=== PATIENT | male | born 1940 | race Caucasian/White ===

== ENCOUNTER → 2017-09-20 | Outpatient (CLI) | payer MEDICARE, BC ==
[~2017-09-20] MED LIST: ACCUPRIL40 MG PO; ACETAMINOPHEN-1 EAC1 PO; ALBUTEROL PO; ALLOPURINOL 30300 M2 PO; ALLOPURINOL 30300 M3 PO; ALPRAZOLAM 0.50.5 MG PO; AMARYL2 MG PO; AMOXICILLIN400 MG PO; ASPIR 8181 MG PO; B-121000 MC2 PO; CARVEDILOL6.25 MG PO; CELEXA20 MG PO; COLACE100 MG PO; DOLOPHINE HCL5 MG PO; FLOMAX0.4 MG PO; FOLIC ACID 40400 MCG PO; FOLIC ACID1 MG PO; GLUCOPHAGE1000 MG PO; HCTZ; HYDROCODON-ACE1 EAC5 PO; IBUPROFEN 600600 M1 PO; LEVOTHYROXINE0.05 MG PO; LIDODERM 5%1 PATC1 TOP; METHADONE HCL5 MG PO; MIRALAX255 GM PO; MOBIC15 MG PO; MORPHINE SULFAT15 M4 PO; NEURONTIN 300300 M1 PO; NEURONTIN600 MG PO; NORCO 10-325 T1 EACH PO; NORCO 5-325 TA1 EACH PO; NORVASC 2.5 MG2.5 M1 PO; PERCOCET PO; PRINIVIL20 M1 PO; PROTONIX40 M1 PO; ROXICODONE5 MG PO; TAMSULOSIN HCL0.4 MG PO; TRAMADOL 50 MG50 MG PO; TRIAMTERENE-HC1 EAC1 PO; VITAMIN B-12500 MCG PO; XANAX1 MG PO; XARELTO10 MG PO; ZOCOR 20 MG TAB20 M1 PO
--- NOTE | 2017-09-22 09:59 | PROC ---
[facility] [address] [place] [address] PROCEDURE REPORT Name: SANAZ WALTER Room: [facility]#: [id number] Admission: 09/20/17 Attend Phys: Jad Zimmerman Discharge: Date of : 41 Report #: [id number] THIS REPORT FOR: //name// CC: Gil Lyle DATE OF SERVICE: 09/20/2017 PAIN CLINIC PROCEDURE INDICATION: The patient is a very pleasant 77-year-old gentleman being treated for lumbar radiculopathy, status post decompressive laminectomy. He is an opiate consent to treat contract patient. His oxycodone 5 mg p.r.n. was prescribed and OxyContin 10 mg at bedtime. Last buccal swab, 08/09/2017, was positive for prescribed medications. He presents to Pain Clinic today for a prior authorized spinal cord stimulator trial. He is taking the OxyContin only p.r.n. bedtime and oxycodone 5 mg 0-2 a day. I did renew his oxycodone prescription today, 5 mg 1 tablet up to b.i.d., limit 45 tablets for 30 days. PROCEDURE NOTE: Spinal cord stimulator lead trial. DESCRIPTION OF PROCEDURE: After informed consent was obtained including risk of infection, paralysis, increased pain and epidural hematoma, patient wished to proceed. IV access was established. The patient was given 1 gram of Ancef. He was taken to fluoroscopy suite and placed in prone position. After wide surgical prep and drape, a skin wheal with Xylocaine was raised. A stab incision with #11 blade was made. A 14 gauge epidural Tuohy needle was placed to enter the posterior spinous process at T12-L1. Stylet was removed and glass filled saline syringe was connected. With continuous plunger pressure, the needle was easily advanced in the epidural space with good loss to resistance. AP and lateral projections showed good needle placement. A spinal cord stimulator lead was then deployed, lead was easily advanced in the posterior aspect of the canal. However, at the T9-T10 interspace, I was unable to advance the lead further cephalad. Lead was withdrawn and attempt was made in the left of midline as well as right of midline, all meeting the same resistance. We elected to place the lead at in the midline, again superior aspect was at the T9-T10 border. The lead was then trialed intraoperatively. We did get good coverage of the low back, buttocks and legs. This was his primary pain generator. We elected to proceed with a trial with the single lead. Under continuous fluoroscopy, the needle and stylet was removed. The tip remained intact. Lead was secured using mastic and Steri-Strips. Wide bolster dressing was applied. The patient was allowed to ambulate to the exam room. He spent some time with the [employer] device rep. They discussed stimulatory patterns. He has contact information for the pain physician technical support consultant ([phone]). [place] [address] PROCEDURE REPORT Name: SANAZ WALTER Room: [facility]#: [id number] Admission: 09/20/17 Attend Phys: Jad Zimmerman Discharge: Date of : 41 Report #: [id number] area clean and dry. I told him to contact Pain Clinic physician technical support consultant if he has any issues with increasing pain, bleeding, weakness, fever, chills, etc. To contact the [employer] [facility] regarding questions about stimulation patterns. We will plan on seeing the patient in 7 days for lead removal and evaluation. Discharged in good and stable condition. Fluoroscopy time was under 60 seconds. <ELECTRONICALLY SIGNED> By: Emanuel Lyle DO 09/22/17 0959 1430 0020Emanuel Lyle DO /nt
== END | disposition home or self-care (01) ==
LOC: M.PC 02:37
DX: M54.16 Radiculopathy, lumbar region (principal); G89.29 Other chronic pain; Z79.891 Long term (current) use of opiate analgesic; Z98.890 Other specified postprocedural states

== ENCOUNTER → 2017-09-27 | Outpatient (CLI) | payer MEDICARE, BC ==
--- NOTE | 2017-09-29 09:33 | PAINCON ---
[address] [address] PAIN MANAGEMENT CONSULTATION Name: SANAZ WALTER [facility] [id number] Admission: 09/27/17 Attend Phys: Jad Zimmerman Discharge: Date of : 41 Report #: [id number] THIS REPORT FOR: //name// CC: Gil Lyle PAIN CLINIC NOTE The patient is a 77-year-old gentleman initially seen in the pain clinic in September 2015, has been treated for ongoing lumbar radiculopathy. He is status post lumbar decompressive laminectomy, has failed conservative therapy. We ultimately progress spinal cord stimulator trial on 09/20/2017, (unfortunately, I was unable to advance the lead above the T9-T10 interspace. We elected to continue the trial with a single lead at this level. I had been in contact with the [employer] device reps over the weekend. The patient was unable to get good coverage in his low back his primary pain area; however, he did have coverage in the left hip and leg. He was actually a little more functionally improved overall. He returns to pain clinic today and notes his pain is an 8 on a VAS. He had increases activity doing more activity over the past weekend, specifically a week and then he has some time feeling a little overall worn out and painful today. Again, he notes primary pain in the low back area, left leg has had pain since the prior injury with some tearing in the proximal muscle groups around the hip. He does have weakness in the left leg, which is chronic. Today, we discussed at length therapeutic options. He is "miserable" using low dose opiate, OxyContin 10 mg 1 in the morning, oxycodone 5 mg up to b.i.d. for breakthrough pain. Gabapentin 300 mg t.i.d. All affording only nominal efficacy. He is very desirous of moving forward to see Dr. Duong in consideration of paddle lead implant. Surgical approach entering above the area of cord compression at T9-T10 that I was unable to get past. May benefit from decompression at this level concurrent with the placement of the paddle lead (?). Nonetheless, the spinal cord stimulator lead was removed today, tips intact, insertion site looks good, no signs of bleeding or infection. Band-Aid was applied. The patient was given contact information for Dr. Rachid Duong. We will be happy to see him as needed for medication management. Discharge in good and stable condition today. <ELECTRONICALLY SIGNED> By: Emaunel Lyle DO 09/29/17 0933 [id number] [id number] Lyle DO /anoop
== END ==
LOC: M.PC 01:29
DX: M54.16 Radiculopathy, lumbar region (principal); Z98.890 Other specified postprocedural states

== ENCOUNTER → 2018-03-07 | Outpatient (CLI) | payer MEDICARE, BC ==
--- NOTE | 2018-03-08 07:27 | PAINCON ---
[facility] [address] [place] [address] PAIN MANAGEMENT CONSULTATION Name: SANAZ WALTER Room: [facility]#: [id number] Admission: 03/07/18 Attend Phys: Jad Zimmerman Discharge: Date of : 41 Report #: [id number] THIS REPORT FOR: //name// CC: Gil Lyle The patient is a 77-year-old gentleman not seen since September. We did a doggyloot spinal cord stimulator trial for the patient of Dr. Rachid Duong. He did have a subsequent implantation of the spinal cord stimulator and decompression at multiple levels in the thoracolumbar spine. He returns to the pain clinic today unfortunately noting the pain continues to be problematic. He does not feel that the stimulator helped significantly. They have had about three different changes so far. He uses a walker consistently. He does have about a 6 inch well-healed incision from about T10 to L4 and a spinal cord stimulator generator in the right pocket. He stands with a significantly forward posture bent from the waist. Upright position significantly exacerbates axial back pain. He is taking physical therapy for his hips. This seems to be helping with his gait and left leg strength. Notes his pain is primarily in the low back with some pain to the buttock and left leg. The patient had been taking oxycodone 5 mg 1 to 3 a day with good efficacy. He has been out for about a month and notes pain is pretty consistently at 8-10 on a VAS. PHYSICAL EXAMINATION: Shows pleasant 77-year-old gentleman, BMI is modestly elevated at 34.5 kilograms per meter squared. Blood pressure 134/97, pulse 89 and respiration 16. As noted rises from chair using armrest, significantly forward bent posture, diffuse axial tenderness. Lower extremity strength is generally diminished, but preserved. Spinal cord stimulator in place. Well-healed surgical scar compatible with history. ASSESSMENT: Axial back pain requiring complex medication management, doggyloot spinal cord stimulator in place with only partial efficacy. Chronic axial back pain, lumbar spondylosis without myelopathy, status post lumbar decompressive laminectomy, extensive decompression, status post spinal cord stimulator implant requiring complex medication management. RECOMMENDATIONS: I had a long discussion with the patient today about therapeutic options. The patient understands that opiate analgesics can be used simply to help mitigate pain to some degree while not trying to achieve a "zero" on a visual analog scale. We will continue the oxycodone 5 mg 0-3 a day to help maintain adequate function. I have taken the liberty of writing for single prescription with 90 tablets. We will have the patient follow up with Dr. Moyer for ongoing management. I told him to make an appointment [place] [address] PAIN MANAGEMENT CONSULTATION Name: SANAZ WALTER Room: [facility]#: [id number] Admission: 03/07/18 Attend Phys: Jad Zimmerman Discharge: Date of : 41 Report #: [id number] the prescription. I suspect that this prescription should last 2-3 months. <ELECTRONICALLY SIGNED> By: Emanuel Lyle DO 03/08/18 0727 1353 [id number] Centerlexii Lyle DO /nt
== END ==
LOC: M.PC 05:01
DX: M47.816 Spondylosis without myelopathy or radiculopathy, lumbar region (principal); M54.5 Low back pain; Z79.899 Other long term (current) drug therapy

== ENCOUNTER → 2018-05-15 | Outpatient (CLI) | payer MEDICARE, BC ==
--- NOTE | 2018-06-25 10:04 | PAINCON ---
[address] [address] PAIN MANAGEMENT CONSULTATION Name: SANAZ WALTER [facility] [id number] Admission: 05/15/18 Attend Phys: Sasha Moyer MD Discharge: Date of : 41 Report #: [id number] THIS REPORT FOR: //name// CC: Sasha Lee DO DATE OF SERVICE: 05/15/2018 CHIEF COMPLAINT: Back pain. FOLLOWUP HISTORY: The patient is a 77-year-old gentleman who has been followed by Dr. Emanuel Lyle. The patient has had a [employer] spinal cord stimulator placed. This was through Dr. Rachid Duong. He did have implantation of the spinal cord stimulator and has had decompression of multiple levels of the lumbar spine in spite of the spinal cord stimulator placement. The patient still continues to have some significant pain. He did not feel that the spinal cord stimulator was significantly helpful. He has been using a walker. Did have an incision from T10 through L4. Notes that upright standing exacerbates his pain and discomfort. He has had physical therapy. He has had some problems over the last few weeks. He had a significant amount of fluid buildup in his abdominal area. The patient states that he has ascites. States that they took about 7-1/2 liters of fluid from his abdomen. Fluid is accumulating relatively rapidly. He has fluid removal about every 2 weeks. He feels that the oxycodone and gabapentin medications have been helpful. He did have hepatitis C and did undergo 6 months treatment with "pills to help with this." He does feel extremely short of breath when the fluid builds. ALLERGIES: No known drug allergies. MEDICATIONS: Again, his medications are oxycodone 5 mg p.r.n. and OxyContin 10 mg at bedtime. Other medications gabapentin 300 mg t.i.d. PAST MEDICAL HISTORY: 1. Chronic back pain. 2. Encephalopathy -- medication induced. 3. Sciatica. 4. Hypertension. 5. Hepatitis C. 6. Kidney disease. 7. History of thyroid disease. PAST SURGICAL HISTORY: Knee arthroscopy, knee arthroplasty, right knee degenerative joint disease, shoulder replacement in 2011, knee replacement in 2012, back [place] [address] [address] PAIN MANAGEMENT CONSULTATION Name: SANAZ WALTER Room: [facility]#: [id number] Admission: 05/15/18 Attend Phys: Sasha Moyer MD Discharge: Date of : 41 Report #: [id number] SOCIAL HISTORY: He is retired. Stopped working in 2007. REVIEW OF SYSTEMS: Fatigue, weakness, eye disease, hearing loss, shortness of breath while lying flat, insomnia, depression, memory loss, diabetes, numbness and tingling sensation, lightheadedness, dizziness, varicose veins. LABORATORY DATA: No laboratory values are available at the time of our interview. PAIN CLINIC ASSESSMENT: 1. History of osteoarthritis/history of arthritis. The patient has some arthritic changes and had shoulder surgeries, left and right, low back surgery, frozen shoulder. 2. Height 5 feet 11 inches, weight 238 pounds. Vital signs: Blood pressure 123/67, heart rate 81, respiratory rate 16, room air saturation 94%, temperature 98.2, pain score 8/10. 3. Fall risk. The patient has not fallen in the last 3 months. Does walk using a walker. 4. Blood thinner. The patient is not on a blood thinning medication. 5. Hypertension. The patient is not being treated for hypertension. 6. Opiates greater than 6 weeks. The patient is receiving opioid therapies through the pain clinic. 7. Risk assessment tool. 8. Functional assessment tool. 9. Recreational drug use. 10. Tobacco: The patient uses tobacco at this juncture. 11. Alcohol. The patient denies frequent use of alcoholic beverages. PHYSICAL EXAMINATION: GENERAL: The patient is a well-developed white male. Does appear somewhat tired. States that he is somewhat short of breath, but is breathing much better now that he has had 7 liters of fluid taken off at the Hospital. HEENT: Normocephalic, atraumatic. Extraocular eye muscles intact. Sclerae nonicteric. Mucous membranes are moist. NECK: Without adenopathy. HEART: Regular rate. LUNGS: Sounds difficult to assess secondary to the patient's body habitus and history of ascites. NEUROLOGIC: Upper extremity muscle strength judged to be 4/5 in the major muscle groups and 4+/5 for the lower extremities. The patient complains of pain in the lower extremities. Well-healed scar compatible with history of spinal cord stimulator in place. ASSESSMENT: 1. Axial back pain requiring complex medical management. 2. History of [employer] spinal cord placement [place] [address] PAIN MANAGEMENT CONSULTATION Name: SANAZ WALTER Room: [facility] [place]#: [id number] Admission: 05/15/18 Attend Phys: Sasha Moyer MD Discharge: Date of : 41 Report #: [id number] 3. Chronic axial back pain. 4. Lumbar spondylosis without myelopathy. 5. Status post lumbar decompressive laminectomy -- extensive decompression. RECOMMENDATIONS: We discussed treatment options with the patient. At this juncture, we will continue with his use of opioid medications. He finds that the oxycodone medication is beneficial. He is taking it 2-3 times daily. Also, the patient will continue with his gabapentin. The patient is aware that the opioid medications will be helpful to help mitigate his pain, but not totally alleviate it. Given his poor respiratory function, I think 0-3 tablets daily is reasonable. A prescription of 90 tablets have been provided for the patient. He will follow up in the near future. He will call us if he has any concerns. We would like to thank you for letting us participate in his care. We hope he continues to improve. <ELECTRONICALLY SIGNED> By: Sasha Moyer MD 06/25/18 1004 [id number]. Wally Moyer MD /nt
== END ==
LOC: M.PC 03:48
DX: M47.816 Spondylosis without myelopathy or radiculopathy, lumbar region (principal); M96.1 Postlaminectomy syndrome, not elsewhere classified; G89.29 Other chronic pain; Z79.899 Other long term (current) drug therapy; M19.90 Unspecified osteoarthritis, unspecified site

== ENCOUNTER → 2018-07-24 | Outpatient (CLI) | payer MEDICARE, BC ==
--- NOTE | 2018-07-25 15:35 | PAINCON ---
[address] [address] PAIN MANAGEMENT CONSULTATION Name: SANAZ WALTER [facility] [id number] Admission: 07/24/18 Attend Phys: Sasha Moyer MD Discharge: Date of : 41 Report #: [id number] THIS REPORT FOR: //name// CC: Sasha Lee DATE OF SERVICE: 07/24/2018 FOLLOWUP COMPLAINT: Here for medication renewal. FOLLOWIUP HISTORY: The patient is a 78-year-old gentleman who has been followed in the pain clinic. He does have a [employer] spinal cord in place. Finds that this medication has helped with his pain. He still has pain and discomfort in his low back and down into his legs. States that he has been found to have ascites. He has been going to [facility]. States that 7 liters of ascitic fluid was pulled off at the last visit. Rates his pain as an 8-9 in the morning and at [facility]'s where he had the fluid taken off. Does have some pain and discomfort involving his left knee. Has some pain in the left groin area. Has noted swelling and inflammation in his left and right leg. If he takes his shoes off, he is unable to get them back on secondary to the amount of swelling that he has been experiencing. The patient does have hepatitis C. States that he has had some cirrhosis of his liver, which is causing a significant amount of his problem. Feels his medications are helpful and would like to continue with their use. He feels that the ascites continues to have return. He feels that he may need to have the ascites removed every 8 days instead of every 14 days. ALLERGIES: No known drug allergies. MEDICATIONS: Oxycodone 5 mg 1 p.o. every 4-6 hours p.r.n., gabapentin 300 mg t.i.d. IMPRESSION: 1. Chronic back pain. 2. Encephalopathy -- medication induced. 3. Sciatica. 4. Hypertension. 5. Hepatitis C history. 6. Kidney disease. 7. History of thyroid disease. PAIN CLINIC ASSESSMENT/PQRS: 1. History of osteoarthritis involving his left knee. The patient has also had some changes and discomfort in his shoulder left and right, has had low back surgery, has a frozen shoulder. 2. Height 5 feet 11 inches, weight 238 pounds, BMI is 33. 3. Vital signs, blood pressure 135/73, heart rate 71, respiratory rate 16, [place] [address] PAIN MANAGEMENT CONSULTATION Name: SANAZ WALTER Room: [facility]#: [id number] Admission: 07/24/18 Attend Phys: Sasha Moyer MD Discharge: Date of : 41 Report #: [id number] air saturation 95%, temperature 98.4. 4. Pain intensity 10. 5. Fall history: The patient has not fallen in the last 3 months. He does walk with use of a walker. 6. Blood thinner. The patient is not on a blood thinning medication. 7. Hypertension. The patient has not been treated for hypertension. 8. Opioid greater than 6 weeks. The [facility]. 9. Risk assessment tool. 10. Functional assessment tool. 11. Recreational drug use. The patient denies use of recreational drugs. 12. Tobacco: The patient uses tobacco at this juncture. 13. Alcohol. The patient denies frequent use of alcoholic beverages. PHYSICAL EXAMINATION: GENERAL: The patient is well-developed, well-nourished white male. Does appear his stated age. Seems somewhat better respiratory status, we saw him last time. HEAD, EYES, EARS, NOSE, AND THROAT: Normocephalic, atraumatic. Extraocular eye muscles intact. Sclerae nonicteric. Mucous membranes are moist. NECK: Without adenopathy or JVD. HEART: Regular rate. LUNGS: Difficult to assess secondary to the patient's body habitus and history of ascites. No neurologic upper extremity muscle strength is judged to be 4/5 for the major muscle groups in the upper extremity and 4+/5 for the lower extremities. Complains of some discomfort in the left groin area. Has well-healed scar and history of spinal cord stimulator placement. The patient has +3 edema in the lower extremities. The patient would not be able to get his shoes back on if he would take them off at this juncture. ASSESSMENT: 1. Axial back pain requiring complex medical management. 2. History of spinal cord placement with partial efficacy. 3. Chronic axial back pain. 4. Liver failure with ascites. 5. History of lumbar decompressive laminectomy. 6. Lower extremity edema. RECOMMENDATIONS: We discussed treatment options with the patient. At this juncture, we will continue with his medications of oxycodone and gabapentin. These medications will be refilled. Hopefully, he continues to improve. The patient continues to walk with use of his walker for stability. He will call us if he has any problems or concerns. [address] [address] PAIN MANAGEMENT CONSULTATION Name: SANAZ WALTER Room: [facility]#: [id number] Admission: 07/24/18 Attend Phys: Sasha Moyer MD Discharge: Date of : 41 Report #: [id number] We would like to thank you for letting us to participate in his care. We hope he continues to improve. <ELECTRONICALLY SIGNED> By: Sasha Moyer MD 07/25/18 1535 1222 [id number] Moyer MD /[facility]
== END ==
LOC: M.PC 04:37
DX: M54.40 Lumbago with sciatica, unspecified side (principal); K70.31 Alcoholic cirrhosis of liver with ascites; G93.40 Encephalopathy, unspecified; R60.0 Localized edema; M96.1 Postlaminectomy syndrome, not elsewhere classified; I10 Essential (primary) hypertension; G89.29 Other chronic pain; N28.9 Disorder of kidney and ureter, unspecified; Z86.39 Personal history of other endocrine, nutritional and metabolic disease; Z79.899 Other long term (current) drug therapy; Z86.19 Personal history of other infectious and parasitic diseases

== ENCOUNTER → 2018-08-21 | Outpatient (CLI) | payer MEDICARE, BC ==
--- NOTE | ~2018-08-21 | PAINCON ---
[address] [address] PAIN MANAGEMENT CONSULTATION Name: SANAZ WALTER Room: [facility].#: [id number] Admission: 08/21/18 Attend Phys: Sasha Moyer MD Discharge: Date of : 42 Report #: [id number] THIS REPORT FOR: //name// CC: Sasha Lee DATE OF SERVICE: 08/21/2018 FOLLOWUP COMPLAINT: "Here for medication renewal. They took off about 8 or 9 liters." FOLLOWUP HISTORY: The patient is a 78-year-old gentleman who has been followed in the pain clinic. As you may recall, he has cirrhosis. Has chronic pain. He has had a [employer] spinal cord stimulator placed. Finds that use of his medications in conjunction with his stimulator were helpful. He continues to develop significant amounts of ascites. He is followed at [facility]. States that they took over 8 liters of fluid from him at the last visit. Notes improvement in his breathing when that happens. He has noted some swelling, which is significant down his legs. He has also noticed some swelling in the groin area. Does have hepatitis C. He feels that his medications continue to be helpful. Has some low back pain as well as his left leg, there is no numbness below his knee. Rates his pain as a 10/10 at this juncture. ALLERGIES: No known drug allergies. MEDICATIONS: Oxycodone 5 mg q.4 hours p.r.n., gabapentin 300 mg t.i.d. PAIN CLINIC ASSESSMENT AND PQRS: 1. History of osteoarthritis involving his left knee. The patient also has had some changes and discomfort in the shoulder as well as left and right shoulder area. He has had low back surgery. 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 2. Height 5 feet 11 inches, weight 227 pounds, BMI is 36.8. 3. Vital signs: Blood pressure 126/67, heart rate 75, respiratory rate 18, room air saturation 98%, temperature 97.8. 4. Pain intensity /10. 5. Fall history: The patient has not fallen in the last 3 months. 6. Blood thinner. The patient is not on a blood thinning medication. 7. Hypertension. The patient has not been treated for hypertension. 8. Opioids greater than 6 weeks. The patient receives his medications [facility], the pain clinic. 9. Risk assessment tool, low for opioid use. 10. Functional assessment tool. 11. Recreational drug use. The patient denies use of recreational drugs. 12. Tobacco: The patient denies use of tobacco at this juncture. 13. Alcohol. The patient denies frequent [place] [address] PAIN MANAGEMENT CONSULTATION Name: SANAZ WALTER Kieran Room: [facility]#: [id number] Admission: 08/21/18 Attend Phys: Sasha Moyer MD Discharge: Date of : 41 Report #: [id number] PHYSICAL EXAMINATION: GENERAL: The patient is a well-developed, well-nourished white male. Appears his stated age. He is alert and oriented. Respiratory status is baseline. HEENT: Normocephalic, atraumatic. Extraocular eye muscles intact. Sclerae nonicteric. Mucous membranes are moist. NECK: Without adenopathy or JVD. HEART: Regular rate. LUNGS: Difficult to assess secondary to the patient's body habitus and history of ascites. EXTREMITIES: Upper extremity muscle straight judged to be 4/5 for the major muscle groups in the upper extremity, 4+/5 for the lower extremity. The patient continues to have some pain and discomfort down his lower back and groin area. States that he has noted some increase of swelling in his testicular area. Well-healed scar and a history of spinal cord stimulator placement. The patient has +4 edema in the lower extremities. Edema up to the level of his knee on the left and right side. ASSESSMENT: 1. Axial back pain requiring complex medical management. 2. History of spinal cord stimulator placement with partial efficacy. 3. Chronic axial back pain. 4. Liver failure with ascites, history of hepatitis C. 5. History of lumbar decompressive laminectomy. 6. Lower extremity edema secondary to ascites buildup. RECOMMENDATIONS: We discussed treatment options. We will continue with his current medications. A script for gabapentin 300 mg, Amaryl 2 mg, oxycodone 5 mg 1 p.o. q.4-6h., total of 100 tablets have been written. The patient will call us if he has any concerns. We would like to thank you for letting us participate in his care. We hope he continues to improve. By: [id number]. Wally Moyer MD /[facility]
== END ==
LOC: M.PC 04:40
DX: M54.5 Low back pain (principal); G89.29 Other chronic pain; M96.1 Postlaminectomy syndrome, not elsewhere classified; K70.31 Alcoholic cirrhosis of liver with ascites; R60.0 Localized edema; Z79.899 Other long term (current) drug therapy

== ENCOUNTER → 2018-09-27 | Outpatient (CLI) | payer MEDICARE, BC ==
--- NOTE | ~2018-09-27 | PAINCON ---
[address] [address] PAIN MANAGEMENT CONSULTATION Name: SANAZ WALTER Room: [facility].#: [id number] Admission: 09/27/18 Attend Phys: Sasha Moyer MD Discharge: Date of : 42 Report #: [id number] THIS REPORT FOR: //name// CC: Sasha Lee DATE OF SERVICE: 09/27/2018 CHIEF COMPLAINT: Here for medicines. They only pumped out 6 liters from the last time. FOLLOWUP HISTORY: The patient is a 78-year-old gentleman who has been followed in the pain clinic. 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 He continues to have significant ascites buildup. States that his last treatment, was drained off 6 liters of fluid. He continues to have pain and discomfort. Finds that the spinal cord stimulator is helpful. He continues to have difficulty with breathing, particularly when the ascites are quite high. Overall, things have gone reasonably well. Rates his pain as a 6/10 at this point. He has had a history of bleeding esophageal varices. States that he got 5 transfusions about a year ago. Has not had problems with that at this juncture. Continues to have some significant swelling in the legs. Does have hepatitis C. He has had low back pain. ALLERGIES: No known drug allergies. CURRENT MEDICATIONS: Oxycodone 5 mg 1 p.o. every 4 hours p.r.n., Gabapentin 300 mg t.i.d. PAST MEDICAL HISTORY: History of esophageal bleed secondary to varices, which were banded. The patient lost about 5 liters of blood. PAIN CLINIC ASSESSMENT/PQRS: 1. History of osteoarthritis involving his left knee. The patient also has had some changes and discomfort in the shoulders, left and right. Has had back pain and surgery. 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 Has not been treated for rheumatoid arthritis. 2. Height 5 feet 11 inches, weight 222 pounds, BMI is 31. 3. Vital signs: Blood pressure 131/68, heart rate 83, respiratory rate 16, room air saturation 92%. 4. Pain in intensity, is 6/10. 5. Fall risk. The patient has not fallen in the last 3 months. 6. Blood thinner. The patient is not on a blood thinning medication. 7. Hypertension. The patient is being treated for hypertension. 8. Opioids greater than 6 weeks. The [facility]. 9. Risk assessment tool, [place] [address] PAIN MANAGEMENT CONSULTATION Name: SANAZ WALTER Room: [facility]#: [id number] Admission: 09/27/18 Attend Phys: Sasha Moyer MD Discharge: Date of : 41 Report #: [id number] 10. Functional assessment tool. 11. Recreational drug use. The patient denies use of recreational drugs. 12. Tobacco: The patient denies use of tobacco. 13. Alcohol: The patient denies use of alcoholic beverages. PHYSICAL EXAMINATION: GENERAL: The patient is a well-developed, well-nourished white male. Appears his stated age. He is alert and oriented x3. HEAD, EYES, EARS, NOSE, AND THROAT: Normocephalic, atraumatic. Extraocular eye muscles intact. Sclerae nonicteric. Mucous membranes are moist. Number of teeth are missing. NECK: Without adenopathy or JVD. HEART: Distant regular rate. LUNGS: Difficult to assess secondary to the patient's body habitus. History of ascites notes some protuberance of abdomen. This would be consistent with ascites. EXTREMITIES: Upper extremity muscle strength 4-/5 for the major muscle groups in the upper extremity. 4- for the lower extremity. The patient walks with use of a rolling walker. Changes position from sitting to a standing position with use of his hands on the chair. Walks slowly. As noted in the past some increased testicular swelling secondary to ascites. Well-healed scar. History of spinal cord stimulator placement. 4+ edema in the lower extremity, edema to the level of his knee left and right side. ASSESSMENT: 1. Hepatic cirrhosis with ascites with increased ascites causing respiratory compromise. 2. Axial back pain requiring complex medical management. 3. History of spinal cord stimulator placed and with partial efficacy. 4. Chronic axial back pain. 5. History of hepatitis C. 6. History of lumbar decompressive laminectomy. 7. Lower extremity edema secondary to ascites buildup. RECOMMENDATIONS: Overall, the patient feels that things are going reasonably well. He had a treatment where 6 liters were withdrawn a couple of days ago. He continues to find his medications of oxycodone and Neurontin helpful. A script for these medications have been rewritten. The patient will call us if he has any concerns. We would like to thank you for letting us to participate in his care. By: [id number]. Wally Moyer MD /[facility]
== END ==
LOC: M.PC 09-18 12:30
DX: M17.12 Unilateral primary osteoarthritis, left knee (principal); I10 Essential (primary) hypertension; F11.10 Opioid abuse, uncomplicated; Z79.899 Other long term (current) drug therapy; Z91.81 History of falling

== ENCOUNTER → 2019-01-24 | Outpatient (CLI) | payer MEDICARE, BC ==
[~2019-01-24] MED LIST changes: +IRON325 PO
--- NOTE | 2019-02-07 01:32 | PAINCON ---
[facility] [address] [place] [address] PAIN MANAGEMENT CONSULTATION Name: JOSE ANGELSANAZ L Room: [facility]#: [id number] Admission: 01/24/19 Attend Phys: Sasha Moyer MD Discharge: Date of : 41 Report #: [id number] THIS REPORT FOR: //name// CC: Sasha Lee DO DATE OF SERVICE: 01/24/2019 CHIEF COMPLAINT: Abdominal pain. FOLLOWUP HISTORY: The patient is a 78-year-old gentleman who has been followed in the Pain Clinic. As you recall, he suffers from chronic hepatitis with cirrhosis. As a result, he continues to develop fluid as a result of ascites. When this increase it makes respiration difficult. It makes it is incredibly problematic for the patient to get comfortable. He continues to have this drained off at a scheduled time. He has been considering having a drain placed. He could then be taught by the nurses to drain the fluid, which would give him more and provide him more comfort. He is considering that option. He has returned today for renewal of his medications. ALLERGIES: No known drug allergies. CURRENT MEDICATIONS: Oxycodone 5 mg one p.o. q. 4 hours, gabapentin 300 mg t.i.d., alprazolam 1 mg b.i.d., vitamin B12 1000 mcg, Colace 100 mg b.i.d., Neurontin 300 mg t.i.d., Amaryl 2 mg, Prinivil 20 mg, Protonix 40 mg, Flomax 0.4 mg, triamterene/hydrochlorothiazide 37.5/25. PAIN CLINIC ASSESSMENT/PQRS: 1. History of osteoarthritis involving his left knee. The patient also has some changes in his shoulders, left and right. The patient has some back pain and has had back surgery. The patient has a frozen shoulder. The patient is not being treated for rheumatoid arthritis. 2. Height 5 feet 11 inches, weight 214 pounds, BMI is 31. 3. Vital Signs: Blood pressure 118/62, heart rate 70, respiratory rate 16, room air saturation 96%, temperature 97.9. 4. Pain intensity, 06/20. 5. Fall risk. The patient has not fallen in the last 3 months. 6. Blood thinner. The patient is not on a blood thinning medication. 7. Hypertension. The patient is being treated for hypertension. 8. Opioids greater than 6 weeks. The patient refuses opioid medication. The patient recieved his medication [facility]. 9. Risk assessment tool, low for opioid use. 10. Functional assessment tool. 11. Recreational drug use. The patient denies use of recreational drugs. 12. Tobacco: The [place] [address] PAIN MANAGEMENT CONSULTATION Name: SANAZ WALTER Kieran Room: [facility]#: [id number] Admission: 01/24/19 Attend Phys: Sasha Moyer MD Discharge: Date of : 41 Report #: [id number] 13. Alcohol: The patient denies use of alcoholic beverages. PHYSICAL EXAMINATION: GENERAL: The patient is a well-developed, well-nourished white male. Appears his stated age. He is alert and oriented x 3. His affect is appropriate. Speech is slow. HEENT: Normocephalic, atraumatic. Extraocular eye muscles intact. Sclerae nonicteric. Mucous membranes moist. The patient is missing a number of teeth. NECK: Without adenopathy or JVD. HEART: Regular rate. ABDOMEN: Protuberant. Bowel sounds distant. The patient has somewhat increased fluid around his abdomen secondary to ascites. EXTREMITIES: Upper extremity muscle strength is 4-/5 for the major muscle groups in the upper extremity. Lower extremity, the patient is walking with a walker. He goes from a sitting to a standing position using his hands. History of spinal cord stimulator placement. ASSESSMENT: 1. Hepatitis cirrhosis with ascites causing some respiratory compromise. 2. Axial back pain requiring complex medical management. 3. History of spinal cord stimulator placed with partial efficacy. 4. Chronic axial back pain. 5. History of hepatitis C. 6. History of lumbar decompressive laminectomy. 7. Lower extremity edema secondary to ascites. RECOMMENDATIONS: We discussed treatment options with the patient. At this juncture, the patient feels that he would like to go to physical therapy. We will have the patient go to physical therapy and had been evaluated to help with his weakness. He continues to use a walker and his cane. He feels that his medications are helpful, the hydrocodone. He is taking them as prescribed. He is considering having a shunt placed in the abdomen to drain off the Extra fluid. Overall, he feels his pain is about 50% improved with his current medical regimen arrangement. We will consider having the c programmer feels that the patient at the Pain Clinic on his next visit to optimize use of his spinal cord stimulator. We would like to thank you for letting us participate in his care. We hope he continues to improve. <ELECTRONICALLY SIGNED> By: Sasha Moyer MD 02/07/19 0132 [id number]. Wally Moyer MD /anoop
== END ==
LOC: M.PC 05:01
DX: K74.60 Unspecified cirrhosis of liver (principal); M54.5 Low back pain; R18.8 Other ascites; Z86.19 Personal history of other infectious and parasitic diseases; M96.1 Postlaminectomy syndrome, not elsewhere classified; Z79.899 Other long term (current) drug therapy

== ENCOUNTER → 2019-05-02 | Outpatient (CLI) | payer MEDICARE, BC | LOC: M.PC 02:14 | DX: M54.5 Low back pain (principal) ==

== ENCOUNTER → 2019-05-30 | Outpatient (CLI) | payer MEDICARE, BC ==
--- NOTE | 2019-06-03 09:16 | PAINCON ---
[address] [address] PAIN MANAGEMENT CONSULTATION Name: JOSE ANGELSANAZ L [id number] Admission: 05/30/19 Attend Phys: Sasha Moyer MD Discharge: Date of : 41 Report #: [id number] THIS REPORT FOR: //name// CC: Sasha Lee DATE OF SERVICE: 05/30/2019 CHIEF COMPLAINT: Low back pain and abdominal discomfort. HISTORY: The patient is a 78-year-old gentleman who has been followed in the pain clinic because of chronic pain. He is having pain in his low back. He finds that the current medications are helpful. He feels that the oxycodone taken p.r.n. can be helpful. He finds that taking total of 10 mg is the most effective. Overall, he feels that things are going reasonably well. He still has some medications from the last prescription. He feels much better at this juncture. He is able to use the drainage in the abdomen to decrease the pressure that continues to build as a result of ascites. Overall, he is much happier with his situation. He rates his pain as a 6/10. Had no real changes and the pain is helped with the current use of his medications. ALLERGIES: No known drug allergies. CURRENT MEDICATIONS: Oxycodone 5 mg 1 p.o. q.4-6 hours, the patient can take 2 tablets when needed. Gabapentin 300 mg 1 p.o. t.i.d., alprazolam 1 p.o. b.i.d., vitamin B12 1000 mcg, Colace 100 mg b.i.d., Neurontin 300 mg t.i.d., Amaryl 2 mg, Prinivil 20 mg, Protonix 40 mg, Flomax 0.4 mg, triamterene/hydrochlorothiazide 37.5/25. PAIN CLINIC ASSESSMENT AND PQRS: 1. The patient has a history of osteoarthritis involving his knee. He has had some changes in his shoulders, left and right. The patient also has had some back pain and has had back surgeries. Has a frozen shoulder. He is not being treated for rheumatoid arthritis. 2. Height 5 feet 11 inches, weight 200 pounds, BMI is 27.1. 3. Vital Signs: Blood pressure 108/67, heart rate 67, respiratory rate 16, room air saturation 94%, temperature 97.5. 4. Pain intensity, 6/10. 5. Fall history. The patient has not fallen in the last 3 months. 6. Blood thinner. The patient is not on a blood thinning medication. 7. Hypertension. The patient is being treated for hypertension. 8. Opioids greater than 6 weeks. The patient continues to use opioids as prescribed. 9. Risk assessment tool, low for opioid use. 10. Functional assessment tool. 11. Recreational drug use. The patient denies [place] [address] PAIN MANAGEMENT CONSULTATION Name: JOSE ANGELSANAZ L Room: [facility]#: [id number] Admission: 05/30/19 Attend Phys: Sasha Moyer MD Discharge: Date of : 42 Report #: [id number] 12. Tobacco: The patient denies use of tobacco. 13. Alcohol: The patient denies use of alcoholic beverages. PHYSICAL EXAMINATION: GENERAL: The patient is a well-developed, well-nourished, white male. Appears his stated age. He is alert and oriented x 3. His affect is appropriate. Speech is fluent. He appears more rested and relaxed today. HEENT: Normocephalic, atraumatic. Extraocular eye muscles intact. Sclerae nonicteric. Mucous membranes are moist. The patient is missing a number of teeth. NECK: Without adenopathy or JVD. HEART: Regular rate. ABDOMEN: Nontender, protuberant. The patient has a shunt in place. The patient's girth is less than it has been in the past secondary to ascites. EXTREMITIES: Upper extremity muscle strength judged to be 4-/5 for the major muscle groups in the upper extremity. Lower extremity, the patient walks with a walker. He uses hands to go from a sitting to a standing position. Has a spinal cord stimulator in place. ASSESSMENT: 1. Hepatitis cirrhosis with ascites, which causes respiratory compromise. 2. Shunt placement to relieve the ascites and the patient relieves the fluid at home. 3. Axial back pain, requiring complex medical management. 4. History of spinal cord stimulator placed with partial efficacy. 5. Chronic axial back pain. 6. History of hepatitis C. 7. History of lumbar decompression laminectomy. 8. Lower extremity edema secondary to ascites. RECOMMENDATIONS: We discussed treatment options with the patient. At this juncture, he feels his medications are helpful. He notes that sometimes when his pain is more problematic, if he takes 2 pills for a total of 10 mg, this can be more efficacious. Overall, he feels that things are going reasonably well. We have instructed him that should his pain become more problematic, to call us. We will then increase his dose of hydrocodone to a more efficacious level. Again, he is tolerating the medications well. He is feeling better. Overall, things are going relatively well. We will continue with his medications at their current levels. A script for Roxicodone 5 mg 1 p.o. q.4-6 hours has been written for 100 tablets. He will also continue with gabapentin 1 p.o. t.i.d. <ELECTRONICALLY SIGNED> By: Sasha Moyer MD 06/03/19 0916 [id number]. Wally Moyer MD /[facility]
== END ==
LOC: M.PC 05:05
DX: M54.5 Low back pain (principal); R10.9 Unspecified abdominal pain; G89.29 Other chronic pain; I10 Essential (primary) hypertension; K74.60 Unspecified cirrhosis of liver; R18.8 Other ascites; Z79.899 Other long term (current) drug therapy; Z79.891 Long term (current) use of opiate analgesic

== ENCOUNTER → 2019-06-27 | Outpatient (CLI) | payer MEDICARE, BC ==
[~2019-06-27] MED LIST changes: +SYNTHROID88 MC1 PO
--- NOTE | 2019-07-03 09:09 | PAINCON ---
[address] [address] PAIN MANAGEMENT CONSULTATION Name: JOSE ANGELSANAZ L Room: [facility]#: [id number] Admission: 06/27/19 Attend Phys: Sasha Moyer MD Discharge: Date of : 41 Report #: [id number] THIS REPORT FOR: //name// CC: Sasha Lee DO DATE OF SERVICE: 06/27/2019 CHIEF COMPLAINT: Low back and shoulder as well as abdominal pain. HISTORY: The patient is a very pleasant 79-year-old gentleman who has been followed in the pain clinic. As you recall, he suffers from ascites. He has had a drain placed. He is able to remove the ascites about every 2 days. He has assistance from his niece. Generally, they takeoff about 2 liters of fluid. This has been much more comfortable. He does not have to wait for additional days to let off the fluid. In the past, they have let out as much as 8 liters of fluid. He finds this pain in the morning still problematic. He rates it as an 8-9. Has pain in his shoulders. Left shoulder is most problematic. He did get an injection in the shoulder about 2 months ago. He did not find that has been senior care helpful. Has some limited range of motion. Notes some popping sensation as well. Has pain in his low back, which is problematic all the time. He does have a spinal cord stimulator. He is not sure that as to how much pain relief this is providing. He has returned today and would like to have a renewal of his medication. Notes that with walking, sitting, standing, bending, and lifting, pain continues to be quite problematic. He feels that his medications were helpful, but they continue to wear off. He was wondering if he could have an additional pain pill during the day to help control the pain when it becomes more limiting. He does not feel any signs of over sedation with the medications. ALLERGIES: No known drug allergies. CURRENT MEDICATIONS: 1. Oxycodone 5 mg one p.o. q.4-6 hours. The patient takes 2 tablets in the morning p.r.n. when needed. 2. Gabapentin 30 mg 1 p.o. t.i.d. 3. Alprazolam 1 mg b.i.d. 4. Vitamin B12 1000 mcg. 5. Colace 100 mg b.i.d. 6. Neurontin 300 mg t.i.d. 7. Amaryl 2 mg. 8. Prinivil 20 mg. 9. Protonix 40 mg. 10. Flomax 0.4 mg. 11. Triamterene/hydrochlorothiazide 37.5/25. [place] [address] PAIN MANAGEMENT CONSULTATION Name: JOSE ANGELSANAZ L Room: [facility]#: [id number] Admission: 06/27/19 Attend Phys: Sasha Moyer MD Discharge: Date of : 41 Report #: [id number] PAIN CLINIC ASSESSMENT/PQRS: 1. The patient has a history of osteoarthritis involving his knee. He has had some changes in his shoulder. This involves the left and the right shoulder. He has had pain in his back and has had back surgeries. He has a frozen shoulder. He is not being treated for rheumatoid arthritis. 2. Height 5 feet 9 inches, weight 205 pounds, BMI is 30. 3. Vital signs: Blood pressure of 123/69, heart rate 78, respiratory rate 16, room air saturation 97%, temperature 97.5. 4. Pain intensity 02/18. 5. Fall history: The patient has not fallen in the last 3 months. 6. Blood thinner. The patient is not on a blood thinning medication. 7. Hypertension. The patient is being treated for hypertension. 8. Opioids greater than 6 weeks. The patient continues to use opioids as prescribed. 9. Risk assessment tool, low for opioid use. 10. Functional assessment tool, low. 11. Recreational drug use. The patient denies. 12. Tobacco: The patient denies use of tobacco. 13. Alcohol. The patient denies use of alcoholic beverages. PHYSICAL EXAMINATION: GENERAL: The patient is a well-developed, well-nourished white male. Appears his stated age. He is alert and oriented x 3. His affect is appropriate. Speech is fluent. HEENT: Normocephalic, atraumatic. Extraocular eye muscles intact. Sclerae nonicteric. Mucous membranes are moist. The patient is missing a number of teeth. NECK: Without adenopathy or JVD. HEART: Regular rate. ABDOMEN: Nontender, but protuberant upward. The patient does have a shunt in the abdominal area. Notes some decrease in his girth since he is able to draw off the ascites more regularly. EXTREMITIES: Lower extremity. The patient walks with a walker. Uses hands to go from a sitting to a standing position. Has spinal cord stimulator in place. IMPRESSION: 1. Hepatitis cirrhosis with ascites, which has caused respiratory compromise. 2. Shunt placement to relieve the ascites and the patient has help from his niece. 3. Axial back pain requiring complex medical management. 4. History of spinal cord stimulation with the partial efficacy at this juncture. 5. Chronic axial back pain. 6. History of hepatitis C. 7. History of lumbar [place] [address] PAIN MANAGEMENT CONSULTATION Name: SANAZ WALTER Room: [facility]#: [id number] Admission: 06/27/19 Attend Phys: Sasha Moyer MD Discharge: Date of : 41 Report #: [id number] 8. Lower extremity edema secondary to ascites. RECOMMENDATIONS: We discussed treatment options with the patient. At this juncture, we will continue with his medications. We will increase his OxyContin from 100 tablets to 120. Hopefully, this will provide him more pain relief. He feels that the medications are helpful. He is not feeling over sedated. Sometimes, he finds it quite difficult to get active in the morning because his pain level is so high. We will have the patient continue to call us if he needs. He is aware that opioid medications can become less effective over time secondary to use of development of tolerance. We will hope that the increase in oxycodone will let the patient to have a more relaxed pain experience. He was constantly wondering whether or not he is going to run out of his medications. Hopefully, by extending this to 120 tablets, he will be able to be more comfortable, be able to be more alert, be able to be more active with less discomfort. We would like to thank you for letting us participate in his care. We hope he continues to improve. <ELECTRONICALLY SIGNED> By: Sasha Moyer MD 07/03/19 0909 [id number] 1656N. Wally Moyer MD /nt
== END ==
LOC: M.PC 04:39
DX: M54.5 Low back pain (principal); G89.29 Other chronic pain; I10 Essential (primary) hypertension; Z79.899 Other long term (current) drug therapy; Z79.891 Long term (current) use of opiate analgesic; Z86.19 Personal history of other infectious and parasitic diseases

== ENCOUNTER → 2019-07-25 | Outpatient (CLI) | payer MEDICARE, BC | LOC: M.PC 05:14 | DX: M54.5 Low back pain (principal); M25.512 Pain in left shoulder ==

== ENCOUNTER → 2019-08-22 | Outpatient (CLI) | payer MEDICARE, BC ==
[~2019-08-22] MED LIST changes: +MEDROLDOSEPACK PO; +ROXICODONE5 M2 PO
--- NOTE | 2019-08-28 13:30 | PAINCON ---
[address] [address] PAIN MANAGEMENT CONSULTATION Name: JOSE ANGELSANAZ L [id number] Admission: 08/22/19 Attend Phys: Sasha Moyer MD Discharge: Date of : 41 Report #: [id number] THIS REPORT FOR: //name// CC: Sasha Lee DATE OF SERVICE: 08/22/2019 CHIEF COMPLAINT: Abdominal pain and pain in the left shoulder. HISTORY: The patient is a 79-year-old gentleman who has been followed in the pain clinic. As you recall, he has quite a bit of pain and discomfort associated with ascites. Continues to have swelling in the abdominal area. States that his niece as well as his nephew are able to draw off some of the ascites. They have taken about 2 liters off each day. Feels that this has been much more manageable than when he had to wait until he returned to the hospital for drainage. He has not had any problems at this juncture. He feels that his medications continue to be helpful. He has noticed some swelling in his ankles bilaterally. He feels that the oxycodone medication is helpful. He still has quite a bit of pain. He only had four pills of oxycodone left at the time of this visit. He would like to have a few more pain meds to help control and improve his pain. He feels overall that things are about 50% improved. He has not been hospitalized since we saw him last. Feels that there is a cracking and popping sensation in his left shoulder. Noted pain and discomfort after getting off of a boat. He placed his left arm up on the side of boat. At that point, he noted some pain and discomfort, which continues to be problematic at this point. ALLERGIES: No known drug allergies. CURRENT MEDICATIONS: Oxycodone 5 mg 1 p.o. every 4-6 hours, gabapentin 300 mg 1 p.o. t.i.d., alprazolam 10 mg b.i.d., vitamin B12 1000 mcg, Colace 100 mg b.i.d., Neurontin 300 mg t.i.d., Amaryl, Prinivil 20 mg, Protonix 40 mg, Flomax 0.4 mg, and triamterene/hydrochlorothiazide 37.5/25. PAIN CLINIC ASSESSMENT/PQRS: 1. The patient has a history of osteoarthritis involving his knee. Has some arthritic changes in his left shoulder. He has some right shoulder discomfort as well. Has had back surgery. 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 He is not being treated for rheumatoid arthritis. 2. Height 5 feet 11 inches, weight 205 pounds, BMI is 28. 3. Vital signs: Blood pressure 125/63, heart rate 74, respiratory rate 16, room air saturation 98%. 4. Pain intensity /10. 5. Fall history: The patient has not fallen in the last 2 months. 6. Blood thinner. The patient is not [place] [address] PAIN MANAGEMENT CONSULTATION Name: JOSE ANGELSANAZ L Room: [facility]#: [id number] Admission: 08/22/19 Attend Phys: Sasha Moyer MD Discharge: Date of : 41 Report #: [id number] 7. Hypertension. The patient is being treated for hypertension. 8. Opioids greater than 6 weeks. The patient receives medication from one source, pain clinic. 9. . 10. Functional assessment tool, low for opioid use. 11. Recreational drug use: The patient denies. 12. Tobacco: The patient denies. 13. Alcohol. The patient denies use of alcoholic beverages. PHYSICAL EXAMINATION: GENERAL: The patient is a well-developed, well-nourished white male, appears his stated age. He is alert and oriented x 3. His affect is appropriate. Speech is fluent. HEAD, EYES, EARS, NOSE, AND THROAT: Normocephalic, atraumatic. Extraocular eye muscles intact. Sclerae nonicteric. Mucous membranes are moist. NECK: Without adenopathy or JVD. HEART: Distant tones. ABDOMEN: Protuberant. MUSCULOSKELETAL: The patient has an abdominal shunt in place. Notes that his umbilicus is enlarged and about the size of a walnut. It is easily compressed. The patient walks with a walker. Uses both hands to go from a sitting to a standing position. Has a spinal cord stimulator in place, which he feels is helpful. IMPRESSION: 1. History of hepatitis/cirrhosis with ascites. 2. Shunt placement to relieve the ascites and increase his comfort level. It is drained by his relatives. 3. Axial back pain requiring complex medical management. 4. History of spinal cord stimulator with partial efficacy and pain control. 5. Chronic axial back pain. 6. History of hepatitis C. 7. History of lumbar decompression status post laminectomy. 8. Lower extremity edema secondary to ascites. 9. Left arm pain with physical findings, which are consistent with frozen shoulder. RECOMMENDATIONS: We will continue with the patient's current medical management. He will be given a Medrol Dosepak to take in the interim. Hopefully, that he will notice some improvement in his left shoulder as a result of this medication. He will also continue with oxycodone 5 mg 1 p.o. every 4-6 hours p.r.n. The patient has been given a script for 150 tablets. He has been given 2-month supply of his medications. Hopefully, things continue to go well. Should his pain continue to be problematic, we will consider the possibility of injection in his left shoulder in the future. The patient is aware that opioid medications can be problematic for certain people. [place] [address] PAIN MANAGEMENT CONSULTATION Name: SANAZ WALTER Room: [facility]#: [id number] Admission: 08/22/19 Attend Phys: Sasha Moyer MD Discharge: Date of : 41 Report #: [id number] as prescribed. He is aware that 70,000 people as a result of overdosing of medications last year. He has not shown any signs of addiction. The patient will continue with the oxycodone 5 mg 1 p.o. every 4-6 hours. A total of 150 tablets have been provided. He will also continue with gabapentin. We would like to thank you for letting us to participate in his care. We hope he continues to improve. <ELECTRONICALLY SIGNED> By: Sasha Moyer MD 08/28/19 1330 1350 [id number]. MD NATALI Chatterjee
== END ==
LOC: M.PC 05:26
DX: K75.9 Inflammatory liver disease, unspecified (principal); M54.5 Low back pain; M79.602 Pain in left arm

== ENCOUNTER → 2019-10-17 | Outpatient (CLI) | payer MEDICARE, BC ==
--- NOTE | 2019-10-22 08:37 | PAINCON ---
[address] [address] PAIN MANAGEMENT CONSULTATION Name: SANAZ WALTER [id number] Admission: 10/17/19 Attend Phys: Sasha Moyer MD Discharge: Date of : 41 Report #: [id number] THIS REPORT FOR: //name// cc: Gil Lee Steve T. DO ~ THIS REPORT FOR: //name// CC: Sasha Lee DATE OF SERVICE: 10/17/2019 CHIEF COMPLAINT: Low back pain and abdominal fullness. HISTORY: The patient is a 79-year-old gentleman who has been followed in the pain clinic. As you may recall, he has a neoplasm, which is producing ascites. The patient has returned today for renewal of his medications. He feels that the oxycodone medication as well as the gabapentin medications continue to be helpful. As you may recall, he had an indwelling catheter placed. This is used on a 2-day basis to draw off ascites. He states that his niece does this for him. She is very meticulous. He did have an infection initially. He has not had a problem since that initial infection. He states that it was because of something associated with the procedure. He is feeling better. He is able to breathe easier without his respiratory effort being embarrassed by ascites. He feels that his pain is about 50% improved with his current medication. He has spinal cord stimulator in place. He feels that the medications are helpful and rates his pain as a 7-8 today. He has noted some swelling in his ankles. He is scheduled to follow up with his liver doctor in the next week. ALLERGIES: No known drug allergies. CURRENT MEDICATIONS: Oxycodone 5 mg one p.o. 4 - 6 hours, gabapentin 300 mg 1 p.o. t.i.d., alprazolam 10 mg b.i.d., vitamin B 1000 mcg, Colace 100 mg, Neurontin 300 mg t.i.d., Amaryl, Prinivil 20 mg, Protonix 40 mg, Flomax 0.4 mg, triamterene/hydrochlorothiazide 37.5/25. PAIN CLINIC ASSESSMENT AND PQRS: 1. The patient has a history of osteoarthritis involving his knee. He has had some arthritic changes in the left shoulder. He has some right shoulder discomfort as well. He has had back surgery. He has a frozen shoulder on the left. He is not being treated for rheumatoid arthritis. 2. Height 5 feet 11 inches, weight 200 pounds, BMI is 28.1. 3. Vital Signs: Blood pressure is 93/56, heart rate 75, respiratory rate 16, room air saturation 98%, temperature 98.1. 4. Pain intensity 7-8/10. 5. Fall history: The patient has not fallen in the last 3 [place] [address] PAIN MANAGEMENT CONSULTATION Name: SANAZ WALTER [facility] [id number] Admission: 10/17/19 Attend Phys: Sasha Moyer MD Discharge: Date of : 41 Report #: [id number] 6. Blood thinner. The patient is not on a blood thinning medication. 7. Hypertension. The patient is being treated for hypertension. 8. Opioids greater than 6 weeks. The patient receives medication from one source, the pain clinic. 9. Functional assessment tool, low for opioid use. 10. Recreational drug use: The patient denies. 11. Tobacco: The patient denies. 12. Alcohol: The patient denies use of alcoholic beverages. PHYSICAL EXAMINATION: GENERAL: The patient is a well-developed white male, appears his stated age of 79. He is alert and oriented x 3. His affect is appropriate. Speech is fluent. HEENT: Normocephalic, atraumatic. Extraocular eye muscles intact. Sclerae nonicteric. Mucous membranes are moist. NECK: Without adenopathy or JVD. HEART: Regular rate, distant tone. ABDOMEN: Protuberant. MUSCULOSKELETAL: The patient has an abdominal shunt in place. He has an enlarged umbilicus. The patient walks using a walker. Upper extremity muscle strength judged to be 4+/5 for the major muscle groups in the upper extremity and 4+/5 for the major lower extremities. IMPRESSION: 1. History of hepatitis/cirrhosis with ascites. 2. Shunt placement, which has relieved ascites and increase his comfort level and is being drained by his relative - niece. 3. Axial back pain requiring complex medical management. 4. History of spinal cord stimulator with partial efficacy of pain control. 5. Chronic axial back pain. 6. History of hepatitis C. 7. History of lumbar decompressive laminectomy. 8. Lower extremity edema secondary to ascites. 9. Left arm treated with physical therapy. It is consistent with a frozen shoulder. RECOMMENDATIONS: The patient states that he is going to physical therapy. He feels that some of his strength has increased somewhat. He finds his medications continue to be helpful. He would like to continue with the gabapentin medication. He feels that the oxycodone is helpful. He is not having any problems with his sensorium. He is thinking clearly. He would like to continue the medications. He keeps his medications in a guarded area. He would like to continue physical therapy. He feels that his medications make physical therapy more comfortable and less painful. A script for his medications of gabapentin 300 mg 1 p.o. t.i.d. has been written. He will also continue with Roxicodone 5 mg one p.o. 4 - 6 hours, total [place] [address] PAIN MANAGEMENT CONSULTATION Name: ANGELES WALTERSHANDRA Alcaraz Room: [facility]#: [id number] Admission: 10/17/19 Attend Phys: Sasha Moyer MD Discharge: Date of : 41 Report #: [id number] patient will call us if he has any complaints. He will follow up in 2 months. We would like to thank you for letting us participate in his care. We hope he continues to improve. <ELECTRONICALLY SIGNED> By: Sasha Moyer MD 10/22/19 0837 1327 1620N. Wally Moyer MD /nt
== END ==
LOC: M.PC 10:48
DX: M54.5 Low back pain (principal); G89.29 Other chronic pain; M79.89 Other specified soft tissue disorders; Z79.891 Long term (current) use of opiate analgesic

== ENCOUNTER → 2019-12-12 | Outpatient (CLI) | payer MEDICARE, BC ==
--- NOTE | ~2019-12-12 | PAINCON ---
[address] [address] PAIN MANAGEMENT CONSULTATION Name: SANAZ WALTER Kieran Room: [facility]#: [id number] Admission: 12/12/19 Attend Phys: Sasha Moyer MD Discharge: Date of : 41 Report #: [id number] THIS REPORT FOR: //name// cc: Gil Lee Steve T. DO ~ THIS REPORT FOR: //name// CC: Sasha Lee DO DATE OF SERVICE: 12/12/2019 CHIEF COMPLAINT: Having some back pain as well as pain in my shoulder and spine. HISTORY: The patient is a 79-year-old gentleman who has been followed in the pain clinic. He suffers from liver problems. He continues to form ascites. He has a drain in place. The indwelling catheter was used to decrease some of the ascites to improve his comfort. His niece and another family member continue to watch over him. They generally draw off ascites every other day. He feels that his medications are helpful. He still has some pain and discomfort. They have been drawing off about 500-800 mL daily. He continues to try to stay healthy. He is aware of the COVID-19 problem. He is trying to stay healthy. Notes that his pain is worse when he is walking, sitting, standing, bending, and lifting. He does have a spinal cord stimulator in place. ALLERGIES: No known drug allergies. CURRENT MEDICATIONS: Oxycodone 5 mg one p.o. q.4-6 hours, gabapentin 300 mg 1 p.o. t.i.d., alprazolam 10 mg b.i.d., vitamin B 1000 mcg, Colace 100 mg, Neurontin 300 mg t.i.d., Amaryl, Prinivil 20 mg, Protonix 40 mg, Flomax 0.4 mg, triamterene/hydrochlorothiazide 37.5/25. PAIN CLINIC ASSESSMENT AND PQRS: 1. The patient has history of osteoarthritis involving his knee. He has had bilateral knee replacements. Has some arthritic changes in his left shoulder. Has some discomfort in the right shoulder. Has had back surgery on about 3 occasions. 2. The patient is not being treated for rheumatoid arthritis. 3. Height 5 feet 11 inches, weight 179 pounds, BMI about 28. 4. Vital Signs: Blood pressure is 93/61, heart rate 84, respiratory rate 16, room air saturation 98%, temperature 98.1. 5. Pain intensity score 6/10. 6. Fall history: The patient has not fallen in the last 3 months. 7. Blood thinner. The patient is not [place] [address] PAIN MANAGEMENT CONSULTATION Name: JOSE ANGLESANAZ L Room: [facility]#: [id number] Admission: 12/12/19 Attend Phys: Sasha Moyer MD Discharge: Date of : 41 Report #: [id number] 8. Hypertension. The patient is being treated for hypertension. 9. Opioids greater than 6 weeks. The patient receives medication from one source the pain clinic. 10. Functional assessment tool, low for opioid use. 11. Recreational drug use: The patient denies. 12. Tobacco: The patient denies. 13. Alcohol. The patient denies use of alcoholic beverages. PHYSICAL EXAMINATION: GENERAL: The patient is a well-developed, well-nourished white male. He appears his stated age of 79. He is alert and oriented x 3. His speech is appropriate. He is accompanied by family member. HEENT: Normocephalic, atraumatic. Extraocular eye muscles intact. Sclerae nonicteric. NECK: Without adenopathy. The patient complains of some pain and discomfort in his shoulders bilaterally. HEART: Regular rate, distant tones. ABDOMEN: Protuberant. MUSCULOSKELETAL: The patient has abdominal shunt in place. Has a significant girth. Has an enlarged umbilicus. The patient is in a wheelchair. Muscle strength judged to be 4-/5 for the major muscle groups in the upper extremity and 4+/5 for the major muscles in the lower extremities. IMPRESSION: 1. History of hepatitis/cirrhosis with ascites. 2. Shunt placement, which relieved the ascites and improved the patient's comfort level. The fluid is drawn off by his niece and her significant other. 3. Axial back pain requiring complex medical management. 4. Spinal cord stimulator with partial efficacy of pain control. 5. Chronic axial back pain. 6. History of hepatitis C. 7. History of lumbar decompressive laminectomy. 8. Lower extremity edema secondary to ascites. 9. Left arm pain. The patient has undergone physical therapy. Findings are consistent with frozen shoulder. RECOMMENDATIONS: We discussed treatment options with the patient. At this juncture, we will continue with his medications. He feels the medication continues to be helpful. He is aware that the opioid medications can become less effective as time goes on. This occurs as a result of tolerance development. He is not having any problems with thinking. His sensorium is clear. Keeps his medications in a guarded area. He would like to continue with the oxycodone 5 mg tablets. He also finds the gabapentin medication beneficial. A script for his medications has been provided. He will continue with gabapentin 300 mg 1 p.o. t.i.d. A total of 90 tablets for the next month and a month thereafter has been provided. The [place] [address] PAIN MANAGEMENT CONSULTATION Name: SANAZ WALTER Kieran Room: [facility]#: [id number] Admission: 12/12/19 Attend Phys: Sasha Moyer MD Discharge: Date of : 41 Report #: [id number] Roxicodone 5 mg one p.o. q.4-6 hours, total of 150 tablets. He will also renew this medication in 1 month. We would like to thank you for letting us participate in his care. We hope he continues to improve. By: 1312 1336N. Wally Moyer MD /nt
== END ==
LOC: M.PC 01:35
DX: M54.5 Low back pain (principal); M25.512 Pain in left shoulder; G89.29 Other chronic pain; M79.602 Pain in left arm; F11.20 Opioid dependence, uncomplicated; Z86.19 Personal history of other infectious and parasitic diseases; Z87.39 Personal history of other diseases of the musculoskeletal system and connective tissue; Z79.899 Other long term (current) drug therapy

== ENCOUNTER → 2020-02-06 | Outpatient (CLI) | payer MEDICARE, BC ==
[~2020-02-06] MED LIST changes: +NEURONTIN300 MG PO
--- NOTE | ~2020-02-06 | PAINCON ---
[address] [address] PAIN MANAGEMENT CONSULTATION Name: SANAZ WALTER Room: [facility]#: [id number] Admission: 02/06/20 Attend Phys: Sasha Moyer MD Discharge: Date of : 42 Report #: [id number] THIS REPORT FOR: //name// cc: Gil Lee Steve T. DO ~ THIS REPORT FOR: //name// CC: Sasha Lee DO DATE OF SERVICE: 02/06/2020 CHIEF COMPLAINT: Continued pain and discomfort in the abdomen. HISTORY: The patient is a 79-year-old gentleman who suffers from liver cancer. He continues to form ascites. He does have an indwelling catheter. His niece continues to be helpful. He states that they draw less than a liter of fluid yesterday. Continues to find that his pain is somewhat overwhelmingly uncomfortable. He feels his medications are helpful. He is not having any problems with them. They are not causing any mental confusion. We will continue with his current medications. He notes that the pain continues to escalate. We will increase his level of opioids to help keep him comfortable. Notes that walking is problematic. He is in a wheelchair. He does have a spinal cord stimulator in place. ALLERGIES: No known drug allergies. CURRENT MEDICATIONS: Oxycodone 5 mg 1 p.o. q. 4-6 hours, gabapentin 300 mg 1 p.o. t.i.d., alprazolam 10 mg b.i.d., vitamin D 1000 mcg, Colace 100 mg, Amaryl, Prinivil 20 mg, Protonix 40 mg, Flomax 0.4 mg, triamterene/hydrochlorothiazide 37.5/25. PAIN CLINIC ASSESSMENT/PQRS: 1. The patient has some arthritic changes in his knee. He has had bilateral knee replacements. The patient has some arthritic changes in his shoulder. He has some discomfort in his right shoulder as well as the left. He has had back surgery on 3 occasions. 2. Height 5 feet 11 inches, weight 179 pounds, BMI is 25. 3. Vital signs: Blood pressure 102/54, heart rate 81, respiratory rate 16, room air saturation 98%, and temperature 98.7. 4. Pain intensity, 6/10. 5. Fall history: The patient has not fallen in the last 3 months. 6. Blood thinner. The patient is not on a blood thinning medication. 7. Hypertension. The patient is being treated for hypertension. 8. Opioids greater than 6 weeks. [place] [address] PAIN MANAGEMENT CONSULTATION Name: SANAZ WALTER Room: [facility]#: [id number] Admission: 02/06/20 Attend Phys: Sasha Moyer MD Discharge: Date of : 42 Report #: [id number] source. Pain Clinic. 9. Risk assessment tool, low for opioid use. 10. Functional assessment tool. The patient denies. 11. Tobacco: The patient denies. 12. Alcohol. The patient denies use of alcoholic beverages. PHYSICAL EXAMINATION: GENERAL: The patient is a well-developed, well-nourished white male. Appears his stated age of 79 years. He is alert and oriented x 3. His speech is fluent. HEENT: Normocephalic, atraumatic. Extraocular eye muscles intact. Sclerae nonicteric. The patient is without adenopathy in the neck. Does complain of some pain and discomfort in his shoulders bilaterally. HEART: Regular, distant tones. ABDOMEN: Protuberant. MUSCULOSKELETAL: The patient has an abdominal shunt in place. Has some significant girth. Has a large girth around the umbilicus. The patient is in a wheelchair. Muscle strength in the upper extremity is judged to be 4/5 for the major muscle groups in the upper extremity and 4+/5 for the major muscle groups in the lower extremity. IMPRESSION: 1. History of hepatitis/cirrhosis of the liver. 2. Shunt placement for relief of ascites and improved comfort. It is withdrawn by his niece and her significant other. 3. Axial back pain requiring complex medical management. 4. Spinal cord stimulator partial efficacy at helping with pain control. 4. Chronic axial back pain. 5. History of hepatitis C. 6. History of lumbar decompressive laminectomy. 7. Lower extremity edema secondary to ascites. 8. Left arm pain. The patient has physical therapy with findings consistent with frozen shoulder syndrome. RECOMMENDATIONS: We discussed treatment options with the patient. At this juncture, we will continue with his medications. He feels that the medications are helpful. Overall, he feels that they are becoming less effective. He feels like he is suffering quite a bit. He feels that his pain is about 60% improved with his current medical regimen. At this juncture, we will increase his oxycodone tablets to 180. He will be able to take 5 mg of this medication up to q. 4 hours. We have discussed the possibility of increasing him to Roxicodone 15 mg tablets. I think we have to try the lower dosing first before we were able to increase another dose to a higher level. We will see how he tolerates this. Hopefully, he will continue to note improvement. He will continue with the gabapentin 300 mg 1 p.o. t.i.d. He will call us, if [place] [address] PAIN MANAGEMENT CONSULTATION Name: SANAZ WALTER Room: [facility]#: [id number] Admission: 02/06/20 Attend Phys: Sasha Moyer MD Discharge: Date of : 42 Report #: [id number] We would like to thank you for letting us participate in his care. We hope he continues to improve. By: [id number]. Wally Moyer MD /nt
== END ==
LOC: M.PC 04:24
DX: R10.9 Unspecified abdominal pain (principal); M79.602 Pain in left arm; R60.0 Localized edema; M54.5 Low back pain; M96.1 Postlaminectomy syndrome, not elsewhere classified; I10 Essential (primary) hypertension; M54.12 Radiculopathy, cervical region; F11.20 Opioid dependence, uncomplicated; Z96.82 Presence of neurostimulator; Z86.19 Personal history of other infectious and parasitic diseases; Z98.890 Other specified postprocedural states